=== PATIENT | female | born 1995 | race Caucasian/White ===

== ENCOUNTER 2025-08-12 13:50 | Emergency (ER) | payer MEDICAID, SELFPAY ==
[2025-08-12 13:53] VITALS: BP 138/90; PULSE 92; RESP 16; TEMP 36.8; O2SAT 100; BMI 42.1
[2025-08-12 14:37] LABS: Mucous, Urine 0 SEEN /hpf (<or=2+); Red Blood Cells-Urine 0 SEEN /hpf (0-5)
[2025-08-12] MEDS: 0.9% Normal Saline (1000mL) 1,000 ML 999 ML IV (14:49)
[2025-08-12 14:50] LABS: Color, Urine Yellow (Yellow); Glucose, Dipstick Normal (Normal); Ketone-Dipstick Negative (Negative); Leukocyte Esterase-Dipstick 500 /ul (Negative); Nitrite-Dipstick Negative (Negative); Occult Blood-Urine 10 /ul (Negative); Protein-Dipstick 30 mg/dl (Negative); Specific Gravity, Urine 1.025 (1.002-1.030); Urine Bilirubin Dipstick Negative (Negative)
[2025-08-12 15:00] LABS: Squamous Epithelial Cells - UA 10-25 SEEN /hpf (5-10)
[2025-08-12 15:01] LABS: Hematocrit 38.0 % (37-47); Hemoglobin 12.5 g/dL (12.0-15.0); Immature Granulocytes Count 0.030 X10^3/uL (0.0-0.0); Mean Corp Hgb Conc 32.9 g/dL (32-36); Mean Corpuscular Volume 91.3 fL (81-99); Mean Platelet Vol. 9.6 fl (6.2-12.0); NRBC Flagged by Analyzer 0 % (0-5); POSITIVE DIFFERENTIAL YES; Platelet Count 289 K/mm3 (150-450); RBC Distribution Width CV 12.9 % (11.6-14.6); RBC Distribution Width SD 42.5 fl (35.1-43.9); Red Blood Count 4.16 M/mm3 (4.2-5.4); White Blood Count 6.7 K/mm3 (4.4-11.0)
[2025-08-12 15:16] LABS: Internal QC Validated? YES +Cl - CLEAR BKGD; Pregnancy, Serum, hCG Quali. NEGATIVE Negative
[2025-08-12 15:29] LABS: AST(SGOT) 17 U/L (<=31); Alanine Aminotransfer ALT/SGPT 15 U/L (<=34); Albumin, Serum 4.6 g/dL (3.5-5.0); Alkaline Phosphatase 67 U/L (35-104); Anion Gap 11 (5-15); BUN 13 mg/dL (4-19); BUN/Creat Ratio 15.0 RATIO (10-20); Calcium,Total 9.4 mg/dL (7.6-11.0); Carbon Dioxide 24.1 mmol/L (21.0-32.0); Chloride 103 mmol/L (98-108); Estimated Creatinine Clearance 109.19 ml/min (50-250); Globulin 2.9 g/dL (2.2-4.2); Glucose 93 mg/dL (70-99); Lipase 17 U/L (13-75); Potassium 3.8 mmol/L (3.3-5.1)
[2025-08-12 15:37] VITALS: BP 134/88; PULSE 80; RESP 18; TEMP 36.8; O2SAT 100
--- NOTE | 2025-08-12 15:39 | EX.ED.DYSGE1 ---
HPI History of Present Illness Chief Complaint: Nausea/Vomiting Narrative Narrative: Pt is a 30-year-old female who is presenting to the ER with chief complaint of nausea, vomiting and flulike symptoms since this morning. Patient is concerned that her multiple medications that she is prescribed could be causing reaction causing her nausea vomiting. Patient was at work. Patient had 3-4 episodes of oranges colored emesis. Patient states she is having mild lightheaded dizziness, no vertigo. No headache. Patient has diffuse myalgia and arthralgia. Patient came in by EMS. Patient stated that she was at work, vomiting, and believes that her boss must of called EMS. Patient states she is not , has no urinary frequency urgency or burning. No diarrhea. No acute complaints. Patient is on multiple medications. Patient says that she started multiple medications recently. REVIEW OF SYSTEMS: Unless otherwise stated in this report the patient's positive and negative responses for review of systems for constitutional, eyes, ENT, cardiovascular, respiratory, gastrointestinal, neurological, , musculoskeletal, and integument systems and related systems to the presenting problem are either stated in the history of present illness or were not pertinent or were negative for the symptoms and/or complaints related to the presenting medical problem. Nurse's notes and vital signs reviewed. The patient is not hypoxic. Vital signs reviewed and patient is not hypoxic. General: The patient appears well and in no apparent distress. Patient is resting comfortably on cart. Not toxic, lethargic, or listless. Patient is very active in the room, smiling, laughing, playing on her cell phone, calling people, patient does not look ill. Skin: Warm, dry, no pallor noted. There is no rash noted. Head: Normocephalic, atraumatic Eye: Normal conjunctiva, no drainage, EOMI. PERRL. Ears, Nose, Mouth, and Throat: oral mucosa is moist. Nares patent. Mouth without vesicles. Cardiovascular: Regular Rate and Rhythm, no murmurs, gallops, or rubs Respiratory: Patient is in no distress, no accessory muscle use, lungs are clear to auscultation, no wheezing, rales or rhonchi Back: non-tender, no CVA tenderness bilaterally to percussion. NO CTLS midline or paraspinal tenderness to palpation. GI: Soft, minimal suprapubic tenderness to palpation, obese, no peritoneal signs, no rash. No tenderness to palpation, no masses appreciated. No rebound, guarding, or rigidity noted. Musculoskeletal: The patient has full range of motion of all extremities and joints with no difficulty. Patient has no motor, no sensory deficits. Neurological: A&O x4, normal speech, no focal neurological deficits. Psychiatric: [facility] Medical History no medical history Home Medications ?Medication ?Instructions ?Recorded ?Last Taken ?Type nitrofurantoin 100 mg PO Q12 #14 CAPSULES 08/12/25 Unknown Rx monohydrate/macrocrystals 100 mg capsule Allergy/AdvReac Type Severity Reaction Status Date / Time Penicillins AdvReac Unknown unknown Verified 08/12/25 13:56 Social History Smoking Status: Current every day smoker tobacco type: e-cigarettes EXAM Physical Exam Const Vital Signs: 08/12/25 13:53 08/12/25 15:37 Temperature 98.3 F 98.2 F Temperature Source Oral Pulse Rate 92 80 Respiratory Rate 16 18 Blood Pressure 138/90 H 134/88 H Blood Pressure Mean 106 103 Pulse Ox 100 100 Oxygen Delivery Method Room Air MDM MDM MDM Narrative Medical decision making narrative: Patient seen and examined: Patient was given IV fluids, IV Zofran, urine, labs testing Differential diagnosis includes but is not limited to: Nausea vomiting, UTI, electrolyte abnormality, dehydration, flulike symptoms, medication reaction Relevant laboratory interpretation: Patient has protein in her urine, also small 1 of blood with 500 leuk esterase. Patient has 5-10 white blood cells, patient does have a small amount of squamous cells as well, urine culture pending Social barriers to healthcare: There are no food insecurities, there is no issue with transportation, there are no insurance barriers Disposition: Patient feels much better after IV Zofran and IV fluids. Patient was sent home with prescription For Macrodantin. Urine cultures pending. Patient was sent home with prescription for Zofran and Phenergan suppositories. Patient tolerating ice chips as soon as she got here with no difficulty and no vomiting. Patient histrionic and traumatic in her presentation, there is no acute pain or proportion, no peritoneal signs abdomen, patient looks well, very active in the room, calling different people, using her cell phone, smiling, patient looks well. Work note given. Lab Data Attestation: I reviewed the patient's lab results. Labs: Laboratory Results - last 24 hr 12/05/25 12/05/25 14:32 14:50 WBC 6.7 RBC 4.16 L Hgb 12.5 Hct 38.0 MCV 91.3 MCH 30.0 MCHC 32.9 RDW Std Deviation 42.5 RDW Coeff of Tre 12.9 Plt Count 289 MPV 9.6 Immature Gran % (Auto) 0.500 Neut % (Auto) 82.5 H Lymph % (Auto) 6.9 L Long % (Auto) 7.5 Eos % (Auto) 1.8 Baso % (Auto) 0.8 Absolute Neuts (auto) 5.5 Absolute Lymphs (auto) 0.46 L Nucleated RBC % 0 Sodium 138 Potassium 3.8 Chloride 103 Carbon Dioxide 24.1 Anion Gap 11 BUN 13 Creatinine 0.83 Estim Creat Clear Calc 109.19 Est GFR (MDRD) Non-Af 97 BUN/Creatinine Ratio 15.0 Glucose 93 Calcium 9.4 Total Bilirubin 0.48 AST 17 ALT 15 Alkaline Phosphatase 67 Total Protein 7.5 Albumin 4.6 Globulin 2.9 Albumin/Globulin Ratio 1.6 Lipase 17 Serum , Qual NEGATIVE Urine Color Yellow Urine Clarity Sl. Cloudy Urine pH 5.0 Ur Specific [place] 1.025 Urine Protein 30 H Urine Glucose (UA) Normal Urine Ketones Negative Urine Occult Blood 10 H Urine Nitrite Negative Urine Bilirubin Negative Urine Urobilinogen Normal Ur Leukocyte Esterase 500 H Urine RBC 0 SEEN Urine WBC 5-10 SEEN Ur Squamous Epith Cells 10-25 SEEN Urine Bacteria 0 SEEN Urine Mucus 0 SEEN Discharge Plan Triage Chief Complaint: Nausea/Vomiting ED Provider: Abisai Thompson Dx/Rx/DC Orders Clinical Impression: Nausea & vomiting, UTI (urinary tract infection) Instructions: Urinary Tract Infections in Women, ED Vomiting (Adult) Prescriptions: New nitrofurantoin monohyd/m-cryst 100 mg capsule 100 mg PO Q12 Qty: 14 0RF Stand Alone Forms: ED Work / School Excuse Primary Care Provider: Lacey Mcknight NP Referrals: Lacey Mcknight TRAM INSPECTOR, TRAM INSPECTOR-C [Primary Care Provider, Medical] Activity Restrictions/Additional Instructions: Continue to increase fluids at home, Gatorade, Powerade, electrolyte drinks. Use Zofran as needed for nausea vomiting, use Phenergan suppositories as needed. Urine culture is pending, you have signs and symptoms of cystitis, antibiotic has been prescribed. Urine culture is pending. Print Language: [place] Disposition Disposition: Home, Self Care Discharge Date/Time: 08/12/25 15:42
== END 2025-08-12 15:42 | disposition home or self-care (01) ==
PROVIDERS: Emergency Provider Emergency Medicine; PCP Nurse Practitioner; Visit Provider Emergency Medicine
DX: R11.2 Nausea with vomiting, unspecified (principal); N39.0 Urinary tract infection, site not specified; F17.290 Nicotine dependence, other tobacco product, uncomplicated
CPT/HCPCS: 80053; 81001; 83690; 84703; 85025; 96361; 96374; 99283; A4216; J2405